=== PATIENT | male | born 1940 | race Caucasian/White ===

== ENCOUNTER 2017-01-07 12:35 | Outpatient (CLI) | payer MEDICARE, OTHER | END 2017-01-07 12:36 | disposition home or self-care (01) | LOC: DI 12:35 | PROVIDERS: ATTEND Internal Medicine | DX: I48.91 Unspecified atrial fibrillation (principal); I51.7 Cardiomegaly; I08.0 Rheumatic disorders of both mitral and aortic valves | CPT/HCPCS: 93306 ==

== ENCOUNTER 2017-03-30 10:45 | Day surgery (SDC) | payer MEDICARE, OTHER ==
[2017-03-30] MEDS ORDERED: LACTATED RINGERS 1,000 ML IV ONE ×2 (10:53)
[2017-03-30] MEDS ORDERED: MIDAZOLAM 2 MG/2 ML VIAL IVP ONE (12:14)
[2017-03-30] MEDS ORDERED: fentaNYL 100 MCG/2 ML VIAL IVP ONE (12:14)
[2017-03-30 13:06] VITALS: BP 118/73
--- NOTE | 2017-03-31 01:09 | PROCEDURE REPORT ---
DATE OF PROCEDURE: 03/30/2017 00:00:00 PROCEDURE PERFORMED: Sigmoidoscopy. ENDOSCOPIST: Miguel Rosen MD. PRIMARY CARE: Moisés Allen MD. 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 PREMEDICATIONS: Versed 3 mg, fentanyl 100 mcg. Total sedation time 12 minutes. After informed consent was obtained, the patient was placed in left lateral decubitus position. The v ideo colonoscope was introduced in the rectum and slowly advanced. This was passed proximally to 30 c m. On slow withdrawal, mucosa was carefully examined. The scope was removed. The patient tolerated th e procedure well. BLOOD LOSS: None. COMPLICATIONS: None. FINDINGS: 1. Very distal rectal sparing of the last 2-3 cm. 2. 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 3. Sigmoid diverticulosis. 4. We will discuss the patient's next steps. Could use budesonide or Flagyl as options. He is already on immunosuppressant for his kidney transplant. JOB #: [id number] EXT JOB #:[id number]
== END 2017-03-30 10:46 | disposition home or self-care (01) ==
LOC: SDS 10:45
PROVIDERS: ATTEND Internal Medicine Gastroenterology
PROC: 0DJD8ZZ Inspection of Lower Intestinal Tract, Via Natural or Artificial Opening Endoscopic (ICD-10-PCS; principal; 2017-03-30 12:00)
DX: K51.20 Ulcerative (chronic) proctitis without complications (principal); K57.90 Diverticulosis of intestine, part unspecified, without perforation or abscess without bleeding; I10 Essential (primary) hypertension; E78.00 Pure hypercholesterolemia, unspecified; I25.10 Atherosclerotic heart disease of native coronary artery without angina pectoris; I48.91 Unspecified atrial fibrillation; Z95.5 Presence of coronary angioplasty implant and graft; Z94.0 Kidney transplant status; Z79.82 Long term (current) use of aspirin

== ENCOUNTER 2017-11-04 10:38 | Outpatient (CLI) | payer MEDICARE, OTHER ==
--- NOTE | 2017-11-04 12:06 | XRAY Report ---
RIGHT KNEE X-RAY: 11/04/2017 COMPARISON: No comparison. INDICATION: Right knee pain. TECHNIQUE: Three views. FINDINGS: There is a small bone fragment of the anterior patella. There is gross prepatellar soft tissue swelling and an effusion. Normal alignment. There are minimal degenerative changes of the patellofemoral joint. IMPRESSION: GROSS ANTERIOR SOFT TISSUE SWELLING. POSSIBLE SMALL CHIP FRACTURE OF THE ANTERIOR PATELLA SEEN ON THE [facility] ONLY. TD: 11/04/2017 12:05 MTDJatin
== END 2017-11-04 10:39 | disposition home or self-care (01) ==
LOC: DI.N 10:38
PROVIDERS: ATTEND Specialist
DX: M25.561 Pain in right knee (principal); M25.461 Effusion, right knee

== ENCOUNTER 2017-11-17 10:16 | Outpatient (CLI) | payer MEDICARE, OTHER | END 2017-11-17 10:17 | disposition home or self-care (01) | LOC: RT 10:16 | PROVIDERS: ATTEND Internal Medicine Cardiovascular Disease | DX: I48.91 Unspecified atrial fibrillation (principal) | CPT/HCPCS: 93005 ==

== ENCOUNTER 2017-11-24 08:18 | Outpatient (CLI) | payer MEDICARE, OTHER ==
[2017-11-24] MEDS ORDERED: REGADENOSON 0.4 MG/5 ML SYRINGE IVP ONE ×2 (11:09→14:25)
--- NOTE | 2017-11-24 13:35 | CARDIAC PROCEDURE NOTE ---
DATE OF SERVICE: 11/24/2017 Physician: SHAMEKA Capps PRIMARY CARE PHYSICIAN: Artie Mccall M.D. PULLEY MAN: George Bass M.D. PROCEDURE: Pharmacologic cardiac stress test. PROCEDURE SYMPTOMS: Dyspnea and congestive heart failure. CARDIAC RISK FACTORS: CAD, hypertension, hyperlipidemia. PREVIOUS CARDIAC PROCEDURES: MPS in 2016 CLINICAL HISTORY: A 76-year-old male with known coronary artery disease. No current symptoms. MEDICATIONS HELD: Carvedilol. INITIAL RESTING VITAL SIGNS: BP 174/100, heart rate 57, height 69 inches, weight 219 pounds, BMI 32.3. PROCEDURE AND FINDINGS: The patient's identity and date verified. Consent signed. Pharmaceutical check. Pharmacologic stress testing was performed with Lexiscan at a dose of 0.4 mg over 10 seconds. Heart rate increased to 84 beats per minute from the infusion. Blood pressure response was normal during the stress procedure. The patient developed infusion related symptoms including shortness of breath and spiritism pressure, which resolved spontaneously. The resting ECG demonstrated normal sinus rhythm with a supraventricular bigeminy. Maximum ST segment depression with stress was less than 0.5 mm and upsloping. There was occasional PVC couplets. FINAL IMPRESSIONS 1. Negative electrocardiogram for ischemia in the setting of vasodilator stress. 2. Nondiagnostic stress test for angina. 3. Two PVC couplets noted. DISCUSSION AND RECOMMENDATIONS: Await myocardial perfusion report. TD: 11/24/2017 13:23
[2017-11-24 16:12] VITALS: BP 184/94
--- NOTE | 2017-11-24 17:17 | Nuclear Medicine Report ---
EXAM: NUCLEAR MEDICINE MYOCARDIAL PERFUSION STRESS REST EXAM DATE: 11/24/2017 02:31 PM. CLINICAL HISTORY: Dyspnea, heart failure. COMPARISON: CT 11/07/2017. TECHNIQUE: Patient given 9.8 mCi technetium 99m sestamibi IV for the rest portion of the exam. Non-ga severo cardiac SPECT scintigraphy performed with multiplanar reformats. After an appropriate delay, sunny ent given 0.4 mg Lexiscan for pharmacologic stress. After this, patient given 42.5 mCi technetium 99m sestamibi IV. Post stress SPECT imaging could not be gated due to atrial fibrillation. Non-gated sci ntigraphy performed with multiplanar reformats, wall motion analysis, and left ventricular ejection f raction estimation. FINDINGS: Maximal heart rate 84 beats per minute, 58% of maximum predicted. There is a small focus of moderate decreased activity in the anteroseptal ventricle on stress, which partially normalizes on rest. Otherwise, uniform activity in the left ventricular myocardium. Wall motion could not be assessed as cardiac arrhythmia prevented cardiac gating. Left ventricular ejection fraction could not be assessed. IMPRESSION: 1. Small focus of moderate ischemia mid anteroseptal wall. [facility] Referring Provider Line: [phone] SITE ID: [id number]
== END 2017-11-24 08:19 | disposition home or self-care (01) ==
LOC: DI 08:18
PROVIDERS: ATTEND Internal Medicine Cardiovascular Disease
DX: I50.9 Heart failure, unspecified (principal); R06.00 Dyspnea, unspecified; I25.9 Chronic ischemic heart disease, unspecified; I49.3 Ventricular premature depolarization
CPT/HCPCS: 78452; 93017; A9500; J2785; 93016; 93018

== ENCOUNTER 2017-12-23 12:13 | Outpatient (CLI) | payer MEDICARE, OTHER ==
--- NOTE | 2017-12-23 12:40 | XRAY Report ---
Procedure Date: 12/23/2017 Accession Number: [id number] / [id number] Procedure: XRN - Chest 2 View X-Ray CPT Code: 28598 FULL RESULT: EXAM: Chest 2 View X-Ray DATE: 12/23/2017 12:29 PM CLINICAL HISTORY: Orthopnea COMPARISON: CT chest 11/07/2017 TECHNIQUE: 2 views. FINDINGS: Lungs/Pleura: The lungs are hyperinflated, compatible with COPD. Patchy right basilar infiltrate is present. Left lung nodule is present, better seen on CT of 11/07/2017. No effusion or pneumothorax. Mediastinum: Cardiomegaly. Other: None. IMPRESSION: COPD, with patchy right basilar infiltrate. Left lung nodule. [facility]
== END 2017-12-23 12:14 | disposition home or self-care (01) ==
LOC: DI.N 12:13
PROVIDERS: ATTEND Specialist
DX: J44.9 Chronic obstructive pulmonary disease, unspecified (principal); R91.8 Other nonspecific abnormal finding of lung field; R91.1 Solitary pulmonary nodule
CPT/HCPCS: 71046

== ENCOUNTER 2018-02-02 10:19 | Outpatient (CLI) | payer MEDICARE, OTHER ==
[2018-02-02 11:19] LABS: CALCIUM 8.8 mg/dL (8.5-10.3); CREATININE 1.6 mg/dL (0.6-1.2)
== END 2018-02-02 10:20 | disposition home or self-care (01) ==
LOC: LAB 10:19
PROVIDERS: ATTEND Internal Medicine Cardiovascular Disease
DX: I50.9 Heart failure, unspecified (principal)
CPT/HCPCS: 36415; 80048

== ENCOUNTER 2018-02-14 10:51 | Outpatient (CLI) | payer MEDICARE, OTHER ==
[2018-02-14 11:27] LABS: CALCIUM 8.8 mg/dL (8.5-10.3); CREATININE 1.6 mg/dL (0.6-1.2)
== END 2018-02-14 10:52 | disposition home or self-care (01) ==
LOC: LAB 10:51
PROVIDERS: ATTEND Internal Medicine Cardiovascular Disease
DX: I50.9 Heart failure, unspecified (principal)
CPT/HCPCS: 36415; 80048

== ENCOUNTER 2018-03-03 09:37 | Outpatient (CLI) | payer MEDICARE, OTHER ==
--- NOTE | 2018-03-03 11:21 | XRAY Report ---
Reason: DYSPNEA,PLEURAL EFFUSION Procedure Date: 03/03/2018 Accession Number: [id number] / [id number] Procedure: XR - Chest 2 View X-Ray CPT Code: 25533 FULL RESULT: EXAM: CHEST RADIOGRAPHY EXAM DATE: 03/03/2018 09:51 AM. CLINICAL HISTORY: DYSPNEA,PLEURAL EFFUSION. History of renal cell cancer. COMPARISON: Chest CT 11/07/2017, chest x-ray 12/23/2017. TECHNIQUE: 2 views. FINDINGS: Lungs/Pleura: Left mid lung nodule as before. Bibasilar atelectasis and/or scarring similar to previous. No definite pleural effusion or pneumothorax. Mediastinum: Heart size top normal to borderline Other: Surgical clips right retroperitoneum. Degenerative change in the spine. IMPRESSION: Stable 2-view chest radiography compared with 12/23/2017 ray demonstrating a left midlung nodule and bibasilar scarring versus atelectasis.. [facility]
== END 2018-03-03 09:38 | disposition home or self-care (01) ==
LOC: DI 09:37
PROVIDERS: ATTEND Internal Medicine Nephrology
DX: R06.00 Dyspnea, unspecified (principal); J90 Pleural effusion, not elsewhere classified; Z85.528 Personal history of other malignant neoplasm of kidney
CPT/HCPCS: 71046

== ENCOUNTER 2018-03-16 16:32 | Outpatient (CLI) | payer MEDICARE, OTHER ==
--- NOTE | 2018-03-17 03:45 | Ultrasound Report ---
Reason: ACUTE KIDNEY FAILURE Procedure Date: 03/16/2018 Accession Number: [id number] / [id number] Procedure: US - Retroperitoneal CPT Code: FULL RESULT: EXAM: RENAL ULTRASOUND EXAM DATE: 03/16/2018 05:57 PM. CLINICAL HISTORY: Acute kidney failure. Renal transplant in 1992. COMPARISON: ABDOMEN/PELVIS W/O 11/07/2017 9:34 AM. TECHNIQUE: Real-time scanning was performed with static images obtained. FINDINGS: Right Kidney: [place] kidney is not visualized. Left Kidney: [place] kidney is not visualized. Transplant: There is a right lower quadrant transplant kidney measuring 12.9 x 5.3 x 5.0 cm. Mild increased echotexture. No hydronephrosis or definite kidney stone. No contour deforming renal mass. Bladder: Right-sided ureteral jet seen. The prevoid bladder volume was 182 cc. Postvoid volume is 0. Other: None. IMPRESSION: 1. Right lower quadrant transplant kidney noted without hydronephrosis. Mild increased parenchymal echotexture may be from chronic medical renal disease. 2. [place] kidneys are not visualized. [facility]
== END 2018-03-16 16:33 | disposition home or self-care (01) ==
LOC: DI 16:32
PROVIDERS: ATTEND Internal Medicine Nephrology
DX: N17.9 Acute kidney failure, unspecified (principal); Z94.0 Kidney transplant status
CPT/HCPCS: 76770